=== PATIENT | male | born 2005 | race Asian ===

== ENCOUNTER → 2024-01-28 16:09 | Outpatient (REF) | payer BC, SELFPAY | LOC: RAD 16:09 | PROVIDERS: ATTENDING PHYSICIAN Physician Assistant Medical | DX: R29.898 Other symptoms and signs involving the musculoskeletal system (principal); M54.50 Low back pain, unspecified; M47.812 Spondylosis without myelopathy or radiculopathy, cervical region | CPT/HCPCS: 72052; 72082; 72110 ==

== ENCOUNTER → 2025-03-05 15:20 | Outpatient (REF) | payer BC, SELFPAY | LOC: HWRAD 15:20 | PROVIDERS: ATTENDING PHYSICIAN Physician Assistant Medical; FAMILY PHYSICIAN Family Medicine | DX: R19.09 Other intra-abdominal and pelvic swelling, mass and lump (principal); Z00.00 Encounter for general adult medical examination without abnormal findings | CPT/HCPCS: 76882 ==

== ENCOUNTER → 2025-07-08 18:03 | Outpatient (REF) | payer BC, SELFPAY | LOC: MRI 18:03 | PROVIDERS: ATTENDING PHYSICIAN Family Medicine | DX: R10.31 Right lower quadrant pain (principal) | CPT/HCPCS: 74183; A9575 ==

== ENCOUNTER 2025-08-02 21:39 | Emergency (ER) | payer BC, SELFPAY ==
[2025-08-02 21:41] VITALS: BP 140/91
[2025-08-02 21:54] LABS: Hematocrit 47.3 % (39.0-52.0); Hemoglobin 16.3 g/dL (13.0-18.0); Mean Corp Hgb Conc. 34.5 g/dL (33.0-37.0); Mean Corpuscular Volume 81.0 fL (80.0-94.0); Nucleated Red Blood Cells % 0 % (-); Platelet Count 306 10^3/uL (130-400); Red Cell Dist. Width 12.3 % (11.5-14.5)
[2025-08-02 22:09] LABS: COVID-19 Antigen Negative (Negative)
[2025-08-02 22:16] LABS: ALT (SGPT) 38 U/L (0-50); AST (SGOT) 27 U/L (17-59); Albumin 4.6 g/dl (3.5-5.0); Alkaline Phosphatase 75 U/L (38-126); Blood Urea Nitrogen 14 mg/dl (9-20); Calcium 9.4 mg/dl (8.4-10.2); Carbon Dioxide 27 mmol/L (22-30); Chloride 102 mmol/L (98-107); Glucose 96 mg/dl (70-99); Potassium 4.2 mmol/L (3.5-5.1); Sodium 135 mmol/L (135-145); Total Protein 8.0 g/dl (6.3-8.2); eGFR 54.24
== END 2025-08-03 01:57 ==
LOC: EMR 21:39
PROVIDERS: EMERGENCY PHYSICIAN Emergency Medicine; FAMILY PHYSICIAN Family Medicine
DX: R51.9 Headache, unspecified (principal); Z11.52 Encounter for screening for COVID-19
CPT/HCPCS: 99283; 80053; 85025; 87502; 87811